=== PATIENT | female | born 1950 | race Caucasian/White ===

== ENCOUNTER → 2016-05-02 | Outpatient (CLI) | payer BC ==
[~2016-05-02] MED LIST: ALBUTEROL2.5 MG/3 M IH; AMLODIPINE BESYL5 MG PO; CELEBREX 1100 MG/CAP PO; DULERA1 AR1 IH; GLUCOPHAGE PO; GLUCOTROL 5M5 MG/TAB PO; NEURONTIN100 M1 PO; SYNTHROID0.125 MG PO; TUSS PO
== END ==
LOC: LAB 14:10
DX: M15.9 Polyosteoarthritis, unspecified (principal)

== ENCOUNTER 2016-06-21 20:51 | Emergency (ER) | payer MEDICARE ==
[~2016-06-21 20:51] MED LIST changes: -TUSS PO
[2016-06-21] MEDS ORDERED: TUSS PO (21:34)
== END 2016-06-21 22:02 | disposition home or self-care (01) ==
LOC: ED 20:51
DX: J09.X2 Influenza due to identified novel influenza A virus with other respiratory manifestations (principal)

== ENCOUNTER → 2016-10-10 | Outpatient (CLI) | payer MEDICARE, OTHER ==
[2016-06-21 21:54] VITALS: BP 175/80
[~2016-10-10] MED LIST changes: +TUSS PO
== END ==
LOC: RAD 10:53
DX: G47.62 Sleep related leg cramps (principal); R53.81 Other malaise; M54.5 Low back pain; M54.9 Dorsalgia, unspecified; R20.2 Paresthesia of skin

== ENCOUNTER → 2016-12-26 | Outpatient (CLI) | payer MEDICARE, OTHER ==
[2016-06-21 21:54] VITALS: BP 175/80
== END ==
LOC: LAB 10:34
DX: R30.0 Dysuria (principal)
CPT/HCPCS: Q0111